=== PATIENT | female | born 1995 | race Hispanic/Latino ===

== ENCOUNTER 2021-03-17 22:48 | Emergency (ER) | payer OTHER | END 2021-03-18 01:37 | disposition home health service (06) | LOC: ERS 22:48 | DX: O9A.23 Injury, poisoning and certain other consequences of external causes complicating the puerperium (principal); S05.11XA Contusion of eyeball and orbital tissues, right eye, initial encounter; Y04.8XXA Assault by other bodily force, initial encounter | CPT/HCPCS: 70450; 70486; 72125 ==